=== PATIENT | male | born 1960 ===

== ENCOUNTER 2017-03-15 03:52 | Inpatient (IN) | payer MEDICAID, OTHER ==
[~2017-03-15] VITALS: Ht 162.6 cm; Wt 85.3 kg
[2017-03-15] MEDS ORDERED: PRINIVIL20 MG PO (04:02)
[2017-03-15] MEDS ORDERED: NORVASC5 MG PO (04:03)
[2017-03-15] MEDS ORDERED: CATAPRES0.2 MG PO (04:03)
[2017-03-15] MEDS ORDERED: LASIX40 MG PO (04:03)
[2017-03-15] MEDS ORDERED: METFORMIN HCL500 MG PO (08:38)
--- NOTE | 2017-03-15 08:43 | NUR ---
IV SITE INTACT, FLUIDS INFUSING EASILY, NO REDNESS OR SWELLING NOTED AT SITE. PT DENIES PAIN, NAUSEA, AND SOB AT THIS TIME. PT ABLE TO STAND AT THE BEDSIDE TO VOID INTO THE URINAL. PT COOPERATIVE AND POLITE. PT IN 4 POINT SCAKLES PER COUNT INCLUDES THE [facility] CORRECTIONS, OFFICER AT BEDSIDE.
--- NOTE | 2017-03-15 10:58 | NUR ---
DILTIAZEM DRIP TURNED OFF AT THIS TIME DUE TO PT HR OF 55-60. PT BP IS 113/75.
--- NOTE | 2017-03-15 11:05 | NUR ---
NOTIFIED OF PT DILTIAZEM DRIP BEING TURNED OFF. NO FURTHER ORDERS AT TIME, EXCEPT TO CONTINUE TO MONITOR. PT ATTEMPTING TO GIVE SPUTUM SAMPLE.
--- NOTE | 2017-03-15 12:00 | NUR ---
PT DENIES CHEST PAIN, SOB AT THIS TIME. C/O NAUSEA, 4 MG ZOFRAN GIVEN IV
--- NOTE | 2017-03-15 12:11 | NUR ---
IV SITE INTACT, NO REDNESS OR SWELLING NOTED, FLUSHES EASILY.
--- NOTE | 2017-03-15 12:18 | NUR ---
PT C/O SOB AT THIS TIME, CALLED [facility], INCREASED O2 FROM 2L NC TO 4L NC PT SATS ARE 90%. [facility] WILL BED DOWN SHORTLY TO ASSESS PT AND POSSIBLY GIVE A NEB.
--- NOTE | 2017-03-15 15:32 | NUR ---
VITAL SIGNS COMPLETED, PT WILLING TO TRY SOMETHING TO EAT. LUNCH ORDERED. GUARD IN ROOM.
--- NOTE | 2017-03-15 16:12 | NUR ---
ASSESSMENT COMPLETED, PT REFUSED TO USE BSC AND WAS CAUSIONED ABOUT AMBULATING WITH LOW BLOOD PRESSURE. PT SAT ON EDGE OF THE BED FOR A FEW MINUTES, AMBULATED TO BATHROOM WITH GUARD AT SIDE AND RN IN ROOM. PT RAVINDER MOVEMENT WELL, HAD BM AND RETURNED TO BED WITHOUT PROBLEMS. WARM BLANKET GIVEN, ACCU CHECK 127, NO COVERAGE NEEDED. PT ATE 100% OF LUNCH.
--- NOTE | 2017-03-15 18:05 | NUR ---
DUO NEB GIVEN FOR EXP WHEEZES.
--- NOTE | 2017-03-15 18:51 | NUR ---
DR. PIERRE IN TO ASSESS PT. EKG ORDERED AND R.T. NOTIFIED.
--- NOTE | 2017-03-15 19:50 | NUR ---
IN TO SEE PT, PT AWAKE IN BED WATCHING TV. DENIES CHEST PAIN, C/O A LITTLE SOB BUT STATES ITS GOTTEN MUCH BETTER SINCE ARRIVAL TO HOSPITAL. CURRENTLY WEARING OXYMASK. JUST RECIEVED [place]. GUARD AT BEDSIDE.
--- NOTE | 2017-03-15 20:59 | EKG ---
[facility] [address] [facility] [place], [place] [address] Signed Atrial fibrillation with rapid ventricular response with premature ventricular or aberrantly conducted complexes Incomplete right bundle branch block Nonspecific ST and T wave abnormality Abnormal ECG No previous ECGs available Confirmed by JOE PIERRE MD ([id number]) on 03/15/2017 8:59:42 PM Electronically Signed By: JOE PIERRE MD 03/15/17 2059 PATIENT NAME: CLAIRE PRATHEREpi GONZALEZ Electrocardiogram DATE OF : 56 PHYSICIAN: JOE PIERRE MD REPORT #: [id number] REPORT IS CONFIDENTIAL AND NOT TO BE RELEASED WITHOUT AUTHORIZATION
--- NOTE | 2017-03-15 21:00 | EKG ---
[facility] [address] [facility] [place], [place] [address] Signed Atrial fibrillation with ventricular escape complexes Incomplete right bundle branch block Abnormal ECG When compared with ECG of 15-MAR-2017 03:57, (Unconfirmed) Vent. rate has decreased BY [address] no longer depressed in Anterior leads Confirmed by JOE PIERRE MD ([id number]) on 03/15/2017 9:00:38 PM Electronically Signed By: JOE PIERRE MD 03/15/17 2100 PATIENT NAME: KM PRATHER Electrocardiogram DATE OF : 56 PHYSICIAN: JOE PIERRE MD REPORT #: [id number] REPORT IS CONFIDENTIAL AND NOT TO BE RELEASED WITHOUT AUTHORIZATION
--- NOTE | 2017-03-15 22:07 | NUR ---
PT HAS BEEN REQUIRING MORE OXYGEN, OXYMASK TURNED UP TO 7L, RR 25, LUNGS WITH EXP WHEEZES, DR PIERRE CALLED AND UPDATED, WILL CONTINUE TO MONITOR.
--- NOTE | 2017-03-15 22:15 | NUR ---
PTS SATS ARE DROPPING DESPITE INTERVENTIONS, UP IN BED, COUGHING, TURNING UP OXYGEN. SPO2 DOWN TO 79-80% WITH OXYMASK UP TO 9L, RT IN AT BEDSIDE ASSISTING, PLANNING TO PUT PT ON BIPAP AND DRAW ABG.
--- NOTE | 2017-03-15 22:30 | NUR ---
RT CALLED TO PLACE PT ON BIPAP, DRAW ABG AND GIVE NEB TX.
--- NOTE | 2017-03-15 22:31 | NUR ---
PT WAS ABLE TO VOID 50ML DARK VAIBHAV URINE. SPO2 ALSO LOW, NOW 85% WITH OXYMASK 7L, WILL TITRATE UP. PT STATES HE IS FEELING SOB AND NOT QUITE COMFORTABLE WITH HIS BREATHING. DR PIERRE CALLED AND UPDATED, ORDER GIVEN FOR ABG AND CPAP/BIPAP.
--- NOTE | 2017-03-15 23:20 | NUR ---
PT REPORTS FEELING SOME SOB, HAS BEEN WEARING BIPAP FOR APPROX 30 MINUTES NOW, SPO2 NOW UP TO 93%.
--- NOTE | 2017-03-15 23:38 | NUR ---
CALL TO DR PIERRE TO UPDATE, NO NEW ORDERS, CONTINUE TO MONITOR PT ON BIPAP. CURRENTLY SPO2 92%, RR 20, HR 75, FIO2 40%.
--- NOTE | 2017-03-16 01:00 | NUR ---
PT TOOK BIPAP MASK OFF, UNABLE TO TOLERATE AT THIS TIME. PLACED ON OXYMASK 8L WITH SPO2 88%. ASSESSMENT DONE, PT REPORTS FEELING LESS SOB. LUNGS WITH LESS WHEEZING THROUGHOUT.
--- NOTE | 2017-03-16 03:08 | NUR ---
PT HAS BEEN RESTING WITH OXYMASK ON 8L, SPO2 89% RR 18.
--- NOTE | 2017-03-16 03:40 | NUR ---
PT REPOSITIONING HIMSELF IN BED, GUARD ASSISTING WITH SHACKLES, PT BECOMES VERY SOB WITH THE ACTIVITY, HR UP TO 120-130, REQUESTS NEB TX, RT IN TO DO NEB AND PLACE BIPAP, PT AGREES TO TRY TO WEAR IT FOR A WHILE.
--- NOTE | 2017-03-16 04:00 | NUR ---
PT REMOVES BIPAP, BACK ONTO OXYMASK WITH SPO2 89% 8L. PT IS AWAKE AND TALKATIVE TO GUARD, HR IS NOW 100-120.
--- NOTE | 2017-03-16 06:00 | NUR ---
DR PIERRE UPDATED REGARDING NO URINE OUTPUT AND ELEVATED HR, WILL GIVE MORNING CARDIZEM EARLY AND BLADDER SCAN PT.
--- NOTE | 2017-03-16 06:24 | NUR ---
PT BLADDER SCANNED FOR 600ML, KEPT DENYING URGE TO VOID BUT FINALLY PERSUADED HIM TO TRY AND HE HAD 500ML DARK YELLOW URINE OUT. RESTING HR 120'S, AFIB, WEARING NASAL CANNULA AT 5L AND SPO2 91%.
--- NOTE | 2017-03-16 08:00 | NUR ---
AWAKE AND ALERT, TALKED WITH PATIENT ABOUT POC. IS UNDERSTANDING. ASSESSMENT DONE. OFFICER IS AT BEDSIDE. O2 VIA OXYMASK AT 3 L. O2 SAT VARIES. SHORTNESS OF BREATH WITH EXERTION.
--- NOTE | 2017-03-16 09:10 | NUR ---
DR. PIERRE HERE TO SEE PATIENT. ORDERS RECIEVED.
--- NOTE | 2017-03-16 10:00 | NUR ---
SAT UP IN BED TO TAKE 100% OF BREATFAST. DENIES PROBLEMS
--- NOTE | 2017-03-16 14:45 | NUR ---
C/O L ANTERIOR CHEST PAIN. 01/24, IS DIAPHORTIC. SLIGHT NAUSEA. DR. PIERRE AWARE. ORDERS RECIEVED.
--- NOTE | 2017-03-16 14:50 | NUR ---
DR. PIERRE HERE. ORDERS RECIEVED TO GIVEN CARDIZEM TOTAL OF 20 MG IV. BP-148/101. HR 120-140.
--- NOTE | 2017-03-16 15:15 | NUR ---
CARDIZEM GTT HUNG AT 10 MG/HR.
--- NOTE | 2017-03-16 15:30 | NUR ---
LOPRESSOR 25 MG IV GIVEN PER ORDERS, WILL TITRATE CARDIZEM GTT PRN.
--- NOTE | 2017-03-16 15:31 | NUR ---
STATES HE FEELS BETTER. HAS BILAT ARM PAIN 07/27. CARDIEM GTT REMAINS AT 10 MG/HR. NO W/O DIAPHORSIS OR NAUSEA. RT HERE TO SET UP VAPOTHERM. O2 CURRENTLY AT 6 L VIA OXYMASK.
--- NOTE | 2017-03-16 18:30 | NUR ---
labs drawn. DR PIERRE UPDATED ON PATIENT. MIRA RECIEVED.
--- NOTE | 2017-03-16 20:10 | NUR ---
PT OFF MONITOR, UNPLUGGED CORD FROM MONITOT TO AMB TO BR TO VOID. INSTRUCTED PT AND OFFICER THAT THAT WAS UNACCEPTABLE AND THAT HR NEEDED TO BE MONITORED WHILE UP. OFFICER EXPRESSED UNDERSTANDING. PT HAD ALSO TAKEN OFF 02. PT IS GENERALLY NONCOMPLIANT WITH 02 DESPITE EXPLANATIONS. SPEECH IS RAPID AND WHEN IN BED NOTED FIDGETING OF FEET, PT STATES THAT IS NORMAL FOR HIM.
--- NOTE | 2017-03-16 20:41 | NUR ---
RAVINDER MCKEON WELL. DID WEAR VAPOTHERM BRIEFLY NOW BACK ON OXYMASK.
--- NOTE | 2017-03-16 21:05 | EKG ---
[facility] [address] [place], [place] [address] Signed Atrial fibrillation with rapid ventricular response Incomplete right bundle branch block Inferior infarct , age undetermined Abnormal ECG Confirmed by JOE PIERRE MD ([id number]) on 03/16/2017 9:04:52 PM Electronically Signed By: JOE PIERRE MD 03/16/17 2105 PATIENT NAME: KM PRATHER Electrocardiogram DATE OF : 56 PHYSICIAN: JOE PIERRE MD REPORT #: [id number] REPORT IS CONFIDENTIAL AND NOT TO BE RELEASED WITHOUT AUTHORIZATION
--- NOTE | 2017-03-16 22:10 | NUR ---
DOZING, SOLUMEDROL GIVEN.
--- NOTE | 2017-03-17 00:15 | NUR ---
PT SLEEPING SOUNDLY. WILL HOLD NEB FOR NOW.
--- NOTE | 2017-03-17 00:40 | NUR ---
NOTED SAT 75% PT SLEEPING ONABD AND 02 OFF, REPLACED.
--- NOTE | 2017-03-17 02:10 | NUR ---
SITING UP IN BED WATCHING TV, IS WEARING VAPOTHERM AT THIS TIME.
--- NOTE | 2017-03-17 03:45 | NUR ---
HAS BEEN USING VAPOTHERM BUT DOES TAKE 02 OFF PERIODICALLY. HAS INC WORK OF BREATHING OFFERED NEB AT FIRST REFUSED THEN TOOK IT. LESS SOB AFTER TX. NO INC IN HR WITH NEB.
--- NOTE | 2017-03-17 06:08 | NUR ---
HAS SLEPT LITTLE. IS CURRENTLY USING VAPOTHERM BUT DOES TAKE IT OFF AND USES OXYMASK ON OWN. HR 60'S
--- NOTE | 2017-03-17 08:15 | NUR ---
ASSESSMENT DONE. LUNGS ARE TIGHT WITH WHEEZES THROUGHOUT. ENCOURAGED TO KEEP O2 SOURCE ON. C/O INCREASED SHORTNESS OF BREATH. O2 DEMAND IS HIGHER TODAY. O2 OXYMASK INCREASED TO 8 L. ORDERS RECIEVED TO DO ABGS. TALKED WITH PATIENT ABOUT PLAN OF CARE, IS UNDERSTANDING. OFFICER IN ROOM.
--- NOTE | 2017-03-17 08:45 | NUR ---
PHONE CALL RECIEVED FROM PATIENT DAUGHTER. I AM TOLD BY OFFICER IN ROOM WE ARE NOT ALLOWED TO GIVE ANY INFORMATION REGARDING PATIENT. WHEN TALKING TO DAUGHTER ABOUT THIS SHE BECAME VERY UPSET. TREATENING TO CALL ADMISTRATION. I AGAIN TOLD DAUGHTER I AM NOT ALLOWED TO GIVE INFORMATION, I SUGGESTED FOR HER TO CALL [facility]. SHE TOLD ME SHE HAD CALLED LONG-TERM AND WAS ANSWERE. DAUGHTER HUNG UP PHONE. TALKED WITH OFFICER ABOUT THIS CONVERSATION I HAD WITH DAUGHTER. DR. PIERRE ALSO AWARE.
--- NOTE | 2017-03-17 08:48 | NUR ---
ABG RESULTS ON 4 L. PH-7.34, PCO2-38, PO2-51, PO2-51, SAT-83.5. THIS ON O2 AT 4L OXYMASK.
--- NOTE | 2017-03-17 08:50 | NUR ---
DR. PIERRE HERE. OXYMASK INCREASED TO 15 L.
--- NOTE | 2017-03-17 09:22 | NUR ---
HOB ELEVATED. WILL HAVE HR LONG NEB PER ORDERS.
--- NOTE | 2017-03-17 09:39 | NUR ---
BRAKFAST HELD DUE TO WORK OF BREATHING.
--- NOTE | 2017-03-17 09:52 | NUR ---
CONTINUE ON ONE HR NEG. WORK OF BREATHING LESS NOW THAN EARLIER.
--- NOTE | 2017-03-17 11:10 | NUR ---
TO CT VIA BED. ACCOMP BY SUPERVISIOR AND OFFICER. PATIENT IS ON NRBM AT 15L TO KEEP SAT > 90%.
--- NOTE | 2017-03-17 11:20 | NUR ---
RETURN TO CCU. TOLERATED CT FAIR.
[2017-03-17] MEDS ORDERED: VENTOLIN HFA18 GM INH ×2 (12:36→12:37)
--- NOTE | 2017-03-17 12:41 | NUR ---
O2 SOURCE VARIED TODAY, BETWEEN OXYMASK AT 15 L, VAPOTHERM AT 30 L WITH FIO2 60 TO 100% AND NRBM AT 15 L. O2 SATURATIONS 84-92 THUS FAR TODAY. DENIES CHEST PAIN.
[2017-03-17] MEDS ORDERED: TYLENOL325 MG PO (12:48)
--- NOTE | 2017-03-17 12:53 | NUR ---
MED REC COMPLETE WITH [facility].
--- NOTE | 2017-03-17 17:00 | NUR ---
ARCINIEGA CATH PLACED W/O DIFFICULTY WITH RETURN OF 5 ML OF CLEAR YELLOW URINE. AWARE. WILL SEND UA.
--- NOTE | 2017-03-17 17:15 | NUR ---
UP TO BR TO HAVE BM. REMAINS WITH EXTREME DYSPNEA WITH EXERTION.
--- NOTE | 2017-03-17 19:33 | NUR ---
REPORT GIVEN TO NEXT SHIFT. PATIENT ASKING FOR SUZE TO BE DC'D.
--- NOTE | 2017-03-17 21:32 | NUR ---
AMB TO BR THOUGHT NEEDED TO HAVE BM. NO RESULTS. WILLING TO KEEP CATHETER FOR NOW. MILDLY SOB WITH EXERTION.
--- NOTE | 2017-03-17 22:23 | NUR ---
CURLED UP ON SIDE ASLEEP. SATS LOW 80'S WITH [address] RR 16-18.
--- NOTE | 2017-03-18 00:15 | NUR ---
SITTING AT EDGE OF BED. STATES BREATHING IS FEELING BETTER AND FEELS LIKE HE GOT SOME REST. DECLINES NEB TX. DOES C/O HEART BURN, GIVEN MAALOX.
--- NOTE | 2017-03-18 02:15 | NUR ---
SAT NOTED 75% ASLEEP WITH 02 OFF. REPLACED. MEDS GIVEN
--- NOTE | 2017-03-18 03:28 | NUR ---
SATS NOTED TO BE 75%, PT HAS TAKEN 02 OFF. STATES HIS NOSE HURTS, OFFERED OXYMASK AND PT STATES HE DOESN'T WANT ANYTHING ON RIGHT NOW BUT WILL PUT IT ON LATER. DR PIERRE TOLD OF THIS.
--- NOTE | 2017-03-18 04:31 | NUR ---
AMB TO BM TO TRY TO HAVE BM, NO RESULTS. STARTED WITHOUT 02 ON, 02 TANK EMPTY TO HAD PT PUT ON NC AT 6L. MILDLY SOB WHEN BACK TO BED. WANTS TO KEEP 02 AT 6 L NC ON AT THIS TIME.
--- NOTE | 2017-03-18 05:40 | NUR ---
WANTING ARCINIEGA CATH OUT. DC'D WITHOUT PROBLEM. AMB TO BR FEELS NEED TO VOID. IS WEARING 02 6L NC AT THIS TIME.
--- NOTE | 2017-03-18 08:44 | NUR ---
SITTING AT BEDSIDE. STATES FEELS BETTER TODAY, IS LESS SHORT OF BREATH. ASKING ABOUT LABS, WENT OVER LAB RESULTS WITH PATIENT. ASSESSMENT DONE.
--- NOTE | 2017-03-18 09:00 | NUR ---
TOOK BREAKFAST WELL. DENEIS PROBLEMS.
--- NOTE | 2017-03-18 10:00 | NUR ---
ECHO BEING DONE AT BEDSIDE.
--- NOTE | 2017-03-18 12:25 | NUR ---
I RECEIVED A PHONE CALL FROM PT'S DAUGHTER ASKING IF I COULD GIVE HER ANY INFORMATION REGARDING HER DAD'S CONDITION. SHE MENTIONED THAT SHE HAD SPOKEN WITH HER MOTHER THAT SAID TO CONTACT THE SPIRITUAL MINISTER. AFTER CONSULTING WITH BK HAMM, SHE REINFORCED THAT WE CANNOT GIVE OUT ANY INFO. ALL CONTACT IS TO GO THROUGH [facility]. DAUGHTER SAID THAT WAS FINE, THE [facility]ENANT WILL GIVE HER UPDATES AT THE [facility].
--- NOTE | 2017-03-18 13:33 | NUR ---
ASLEEP. NRBM IN PLACE. O2 SAT 94.
--- NOTE | 2017-03-18 14:10 | NUR ---
UP TO BR W/O O2, VERY DYSPNIC UPON RETURN TO BED. O2 SAT79%. TALKED TO PATIENT AGAIN ABOUT USING CALL LIGHT WHEN NEED ASSIST. THIS HAS BEEN DISCUSSED MANY TIMES DURNING THIS ADMISSION.
--- NOTE | 2017-03-18 15:30 | NUR ---
BATH GIVEN. SHORT OF BREATH WITH EXERTION. USING VAPOTHERM OR NRBM DEPENDING ON PATIENT WISHES AT TIME.
--- NOTE | 2017-03-18 17:00 | NUR ---
ACCUCHECK-131. NO INSULIN GIVEN.
--- NOTE | 2017-03-18 18:43 | NUR ---
TALKED WITH PATIENT REARDING FLUID RESTRICTION.
--- NOTE | 2017-03-18 18:56 | NUR ---
RESTFUL. REPORT TO NEXT SHIFT. NO CHANGES.
--- NOTE | 2017-03-18 20:10 | NUR ---
CURRENTLY WEARING VAPOTHERM UT ONLY WEARS 02 WHEN HE WANTS. DOES WANT NEB TX. REMINDED OF FLUID RESTRICTION. GIVEN LASIX, URINAL IN REACH. C/O HEART BURN GIVEN MAALOX.
--- NOTE | 2017-03-18 21:15 | NUR ---
NEEDING TO HAVE BM. DEPUTY DOES NOT HAVE KEYS FOR CUFFS. PT UNABLE TO GET TO BSC. USED BEDPAN WHILE SITTING AT EDGE OF BED. ALSO VOIDED. DID URINATE ON BED. LINEN CHANGED, HAD TO CUT PAJAMA PANTS OFF.
--- NOTE | 2017-03-18 22:45 | NUR ---
UP TO BSC TO HAVE LIQ BM AND VOID. RAVINDER WELL.
--- NOTE | 2017-03-19 00:02 | NUR ---
SATS NOTED TO BE 75%, SLEEPING WITHOUT 02 ON. PT REFUSED TO HAVE TEMP TAKEN. PT IS LAYING ON SIDE, WHEN TRIED TO PUT VAPOTHERM BACK ON PT DID NOT MOVE HEAD TO ALLOW IT TO BE LOOPED OVER EAR. TRIED TO PROP IT IN PLACE. PT INFORMED OF WHAT HIS SATS ARE. HE SAYS HE WILL PUT IT BACK ON. SATS DID GO UP TO 80'S WITH 02 NEAR NOSE.
--- NOTE | 2017-03-19 00:27 | NUR ---
UP TO BSC TO HAVE LARGE LIQ STOOL AND VOID INTO COMMODE. RAVINDER FAIR DID NOT KEEP 02 ON WHILE UP, DID PUT IT BACK ON WHEN BACK TO BED.
--- NOTE | 2017-03-19 02:43 | NUR ---
SLEPT FOR ABOUT AN HOUR AND 1/2. SATE LOW 80'S ON RA WHILE ASLEEP. NOW AWAKE REQUESTING COFFEE. GIVEN 1/2 CUP AND REMINDED TO PUT 02 ON.
--- NOTE | 2017-03-19 03:54 | NUR ---
MORE RESTFUL TONIGHT, GIVEN DIET SODA PER REQUEST, PT IS AWARE OF FLUID RESTRICTION.
--- NOTE | 2017-03-19 04:31 | NUR ---
BP 88/49 HR 87 CARDIZEM WAS DEC AT 0415 TO 5MG/HR, WILL DEC TO 2.5MG/HR.
--- NOTE | 2017-03-19 05:54 | NUR ---
HAS BEEN SLEEPING OFF AND ON WITH VAPOTHERM IN PLACE.
--- NOTE | 2017-03-19 08:00 | NUR ---
AWAKE AND ALERT, SITTING AT BEDSIDE. DENIES SHORTNESS OF BREATH. VAPOTHERM FIO2-100%, DECREASED TO 80%. ASSESSMENT DONE. PT IS AWARE OF FLUID RESTRICTION. OFFICER IN ROOM.
--- NOTE | 2017-03-19 08:30 | NUR ---
TOOK BREAKFAST WELL. STOOD AT BEDSIDE TO VOID 600 ML OF CLEAR YELLOW URINE.
--- NOTE | 2017-03-19 09:00 | NUR ---
Confirmed with Dr Espinoza that patient is to recieve am metoprolol and imdur as patient is hypotensive at this time. Held a.m. dose of IV lasix as well as oral potassium.
--- NOTE | 2017-03-19 10:31 | NUR ---
Patient sitting up in chair, call light in reach. Patient has a family member at bedside. Patient is impulsive at times, requiring constant monitoring for safety. Patient given 250 ml IV bolus of LR for hypotension.
--- NOTE | 2017-03-19 10:50 | NUR ---
SLEEPING. O2 SAT ON RA,83%, OXYMASK AT 3 L APPLIED.
--- NOTE | 2017-03-19 12:15 | NUR ---
REMAINS ON RA. STATES HE FEELS MUCH BETTER TODAY. TRANSFER TO MEDICAL FLOOR ORDERS RECIEVED.WILL STAY CCU HOUSE CONV AT THIS TIME. ACCUCHECK-347, 9 UNITS INSULIN GIVEN.
--- NOTE | 2017-03-19 12:57 | NUR ---
TELE # 1 APPLIED. RESTFUL. NO CHANGES. REMAINS OFF O2. SPOT CHECK SAT-89-90.
--- NOTE | 2017-03-19 17:00 | NUR ---
NO INSULIN REQUIRED. ACCUCHECK-132.
--- NOTE | 2017-03-19 17:21 | NUR ---
C/O OVERALL ACHE. STATES HE FEELS VERY BAD. PATIENT IS UNABLE TO TELL ME HOW HE FEELS.
--- NOTE | 2017-03-19 17:30 | NUR ---
PATIENT RELEASED FROM NURSING HOME. BIT AND SHANK DEPARTMENT SUPERVISOR AND DR. PIERRE AWARE.
[2017-03-19] MEDS ORDERED: METOPROLOL SUC100 MG PO (17:54)
[2017-03-19] MEDS ORDERED: VENTOLIN HFA18 GM INH (17:54)
[2017-03-19] MEDS ORDERED: FUROSEMIDE80 MG PO (17:54)
[2017-03-19] MEDS ORDERED: METFORMIN HCL500 MG PO (17:54)
[2017-03-19] MEDS ORDERED: NICORETTE4 M2 BUCCAL (17:54)
[2017-03-19] MEDS ORDERED: ASPIRIN EC325 MG PO (17:54)
[2017-03-19] MEDS ORDERED: POTASSIUM CHLO20 ME1 PO (17:54)
[2017-03-19] MEDS ORDERED: CARDIZEM LA360 MG PO (17:54)
[2017-03-19] MEDS ORDERED: MAG-OXIDE400 MG PO (17:54)
--- NOTE | 2017-03-19 17:56 | NUR ---
HAS BEEN UP IN ROOM. DENIES SHORTNESS OF BREATH.
--- NOTE | 2017-03-19 19:01 | NUR ---
SITTING UP TALKING ON PHONE.
--- NOTE | 2017-03-19 19:50 | NUR ---
SITTING ON COUCH BY WINDOW. DENIES SOB. STATES FEELING OK WOULD LIKE TO GO OUTSIDE AND SMOKE. TOLD THAT WAS NOT ALLOWED AND HE STATED HE KNEW THAT. IS AWAITING VISITORS.
--- NOTE | 2017-03-19 20:27 | NUR ---
PT WANTS TO GO AMA, DR PIERRE NOTIFED. PRESCRIPTIONS THAT HAD BEEN FILLED OUT EARLIER SENT WITH PT PER DR PIERRE'S INSTRUCTION. TELE DC'D AND SL DC'D.
== END 2017-03-19 20:31 | disposition home or self-care (01) | DRG 291 ==
LOC: ED 03:52 → CCU 06:39
PROVIDERS: ADMIT Internal Medicine
DX: I11.0 Hypertensive heart disease with heart failure (principal); J96.01 Acute respiratory failure with hypoxia; J15.4 Pneumonia due to other streptococci; N17.9 Acute kidney failure, unspecified; J44.0 Chronic obstructive pulmonary disease with (acute) lower respiratory infection; I50.23 Acute on chronic systolic (congestive) heart failure; I48.91 Unspecified atrial fibrillation; I34.0 Nonrheumatic mitral (valve) insufficiency; E87.6 Hypokalemia; E11.9 Type 2 diabetes mellitus without complications; Z79.84 Long term (current) use of oral hypoglycemic drugs; F17.210 Nicotine dependence, cigarettes, uncomplicated; J20.2 Acute bronchitis due to streptococcus
CPT/HCPCS: 36415; 36600; 51702; 51798; 71010; 71250; 74176; 80053; 80069; 81001; 82570; 82803; 83036; 83735; 83880; 84300; 84484; 84540; 85025; 87070; 87205; 89051; 90674; 93005; 93010; 93306; 94640; 94644; 94660; 94667; 94668; 94799; 96374; 96376; 99285; G0008; J1650; J2405; J2930; J7040